=== PATIENT | male | born 1955 | race Caucasian/White ===

== ENCOUNTER 2017-03-21 13:47 | Emergency (ER) | payer MEDICARE, MEDICAID ==
[~2017-03-21] VITALS: Ht 180.3 cm; Wt 80.0 kg
[~2017-03-21 13:47] MED LIST: ALBU0.086 INH; ALRE0.2S3 BOTH EYES; ATOR10 PO; BUDE.5I INH; CARD4TAB2 PO; ECOT81TA2 PO; GUAI600 PO; IPRA0.02 INH; LEVE500 PO; LEXI700T PO; METH10TA PO; MONT10TA2 PO; SPIRCAP INH; TIMO0.2525 EACH EYE; TRUV200300; TYLCOD5S PO; VALT1TAB26 PO; XANA1TAB6 PO; [UNRECOGNIZED DRUG - OTHER] INH
[2017-03-21 13:53] VITALS: BP 108/58; PULSE 123; RESP 18; TEMP 98.1; O2SAT 87
[2017-03-21 14:04] VITALS: BP 108/58; PULSE 126; RESP 22; O2SAT 87
[2017-03-21] MEDS: RESP: ALBUTEROL 2.5 MG/IPRATROPIUM 0.5 MG NEB (SCH) INH (14:27)
--- NOTE | 2017-03-21 15:11 | RADRPT ---
EXAM DATE/TIME: 03/21/2017 14:46 [place] COMPARISON: CHEST PA & LAT, January 09, 2014, 19:41. INDICATIONS : Short of breath since yesterday. MEDICAL HISTORY : Glaucoma, hypercholesterolemia, Hx of Teberculosis in 1992, COPD, Hx of hep C. SURGICAL HISTORY : Tonsillectomy, Brain surgrey 1993 R/T infected abscess, C3-C4 fusion 2006, Sinus ENCOUNTER: Initial ACUITY: 1 day PAIN SCORE: 0/10 LOCATION: Bilateral chest FINDINGS: Portable AP view of the chest demonstrates a normal-sized cardiac silhouette. Right chest wall Infuse -a-Port is present with distal tip in the superior vena cava. There are interstitial opacities in the lower lung zones bilaterally, right greater than left with mild lucency in the upper lung zones. No pneumothorax or pleural effusion is seen. Bones and soft tissues demonstrate no acute finding. Cervic al spine hardware is present. CONCLUSION: Background lung changes are characteristic of emphysema. The interstitial opacities in the right lowe r lung zone appear slightly increased and could represent an abnormal airspace process. Suggest follo wup to confirm resolution. Ángel Stanford MD on March 21, 2017 at 15:08 Board Certified Radiologist. This report was verified electronically.
--- NOTE | 2017-03-21 15:21 | PD ---
HPI Chief Complaint: Respiratory Distress Time Seen by Provider: 15:16 Travel History International Travel<30 days: No Contact w/Intl Traveler<30days: No Traveled to known affect area: No History of Present Illness HPI 61-year-old male that presents to the ED for evaluation of shortness of breath. Patient has a chronic history of HIV and COPD. Patient is currently on hospice by [facility] and is currently being managed by them. Per sister who takes care of the patient his been more short of breath for the past 3 days. She feels that patient cannot longer stay at her house and she can no longer take care of himself she wants to bring the patient here to get evaluated to see whether it patient can be placed. Per sister she has been contacted with [facility] who unfortunately did not have any placement for him as of yet. Patient was brought here by ambulance for evaluation of this. He states that he feels short of breath for the past 3 days. He has chronic COPD and uses oxygen at home. Per ambulance report he sats well if his sitting, but whenever he ambulates gets very short of breath and his O2 sats that goes to 83,84. He denies any pain. Per patient he does feel short of breath. Has been having productive cough. Allergies to amoxicillin and Rocephin. PFSH Past Medical History Blood Disorders: No Anxiety: Yes Depression: No Cancer: No Cardiovascular Problems: No High Cholesterol: Yes COPD: Yes (ON NC @2L AT HOME) Diminished Hearing: No Endocrine: No Glaucoma: Yes Genitourinary: Yes Hepatitis: Yes ("hep c cleared") Immune Disorder: Yes ("HIV POSITIVE") Implanted Vascular Access Dvce: Yes Musculoskeletal: Yes Neurologic: No Psychiatric: Yes Reproductive: No Respiratory: Yes (COPD) Past Surgical History Abdominal Surgery: No AICD: No Arteriovenous Shunt: No Body Medical Devices: SCREWS/RODS IN NECK Cardiac Surgery: No Ear Surgery: No Endocrine Surgery: Yes (SINUS SURGERY 2003) Eye Surgery: No Genitourinary Surgery: No Gynecologic Surgery: No Insulin Pump: No Joint Replacement: No Neurologic Surgery: Yes (BRAIN SURGERY 1993 R/T INFECTED ABSCESS) Oral Surgery: Yes (sinus surgery) Pacemaker: No Thoracic Surgery: No Tonsillectomy: Yes Other Surgery: Yes ("1993,brain surgery,abscess removed") Social History Alcohol Use: No Tobacco Use: No Substance Use: No (history of iv use,last used cocaine in 1980) Allergies-Medications (Allergen,Severity, Reaction): Coded Allergies: Amoxicillin (Verified Allergy, Severe, UNKNOWN, 03/21/17) Penicillin (Verified Allergy, Severe, UNKNOWN, 03/21/17) Rocephin (Verified Allergy, Severe, SWELLING; 10/26/[address] Yaneth SANCHEZ PT TOLERATES ANCEF WELL, 03/21/17) 10/26/07: PER DR SANDY SANCHEZ, PT TOLERATES ANCEF W/O ADVERSE EFFECTS. Reported Meds & Prescriptions Reported Meds & Active Scripts Active Reported Clotrimazole 100 Mg Tablet 10 Mg PO 5 TIMES A DAY Lotemax Opth Drops (Loteprednol Etabonate) 0.5 % Soln 1 Drop EACH EYE QID Proventil Hfa 6.7 GM Inh (Albuterol Sulfate) 90 Mcg/Act Aer 2 Puff INH Q4-6H PRN Stiolto Respimat Inh (Tiotropium-Olodaterol Inh) 2.5-2.5 Mcg/Act Aero 2 Puff INH DAILY Lomotil (Diphenoxylate-Atropine) 2.5-0.025 Mg Tab 1 Tab PO Q6H PRN Klonopin (Clonazepam) 2 Mg Tab 2 Mg PO TID Ativan Inj (Lorazepam) 2 Mg/Ml Inj 6 Mg PO Q6HR PRN Cardura (Doxazosin Mesylate) 2 Mg Tab 2 Mg PO HS Daliresp (Roflumilast) 500 Mcg Tab 500 Mcg PO DAILY Cheratussin AC Liq (Guaifenesin-Codeine Liq) 100-10 Mg/5 Ml Syrp 5 Ml PO BID Do not exceed 6 doses/24 hrs. Lactulose Liq (Lactulose) 10 Gm/15 Ml Soln 15 Ml PO DAILY Prednisone 10 Mg Tab 10 Mg PO DAILY Ecotrin Low Strength (Aspirin) 81 Mg Tabdr 81 Mg PO DAILY Doxycycline Hyclate 50 Mg Cap 50 Mg PO DAILY Valtrex (Valacyclovir HCl) 1 Gm Tab 1,000 Mg PO DAILY Genvoya (Bhgciwumnxhw-Nmcpkhtyfs-Blzmfekufhuc-Tenofvir) [id number] Mg Tab 1 Tab PO DAILY Travatan Z Opth Drops (Travoprost) 0.004 % Soln 1 Drop DAILY Restasis Opth 0.05% (Cyclosporine Opth 0.05%) 0.05% Emul 1 Drop Androgel Pump Topical (Testosterone) 1.62 % Gel Unknown Dose TOPICAL DAILY Duoneb (Ipratropium-Albuterol Neb) 0.5-2.5 Mg/3 Ml Neb 1 Nebule INH Q6HR NEB Travatan Z Opth Drops (Travoprost) 0.004 % Soln 1 Drop EACH EYE HS Singulair (Montelukast Sodium) 10 Mg Tab 10 Mg PO DAILY Albuterol Neb (Albuterol Sulfate) 2.5 Mg/3 Ml Neb 2.5 Mg NEB BID PRN Oxycontin (Oxycodone HCl) 60 Mg Tab 60 Mg PO BID Clonazepam 2 Mg Tab 2 Mg PO TID Haloperidol 0.5 Mg Tab 0.5 Mg PO BID Morphine Sulfate 4 Mg/1 Ml Vial 20 Mg PO Q3HR PRN Morphine ER (Morphine Sulfate) 30 Mg Tab 30 Mg PO Q8H Review of Systems Except as stated in HPI: all other systems reviewed are Neg Physical Exam Narrative GENERAL: SKIN: Warm and dry. HEAD: Atraumatic. Normocephalic. EYES: Pupils equal and round. No scleral icterus. No injection or drainage. ENT: No nasal bleeding or discharge. Mucous membranes pink and moist. Tongue is midline. No uvula deviation. NECK: Trachea midline. No JVD. CARDIOVASCULAR: Regular rate and rhythm. No murmurs, S3, S4. RESPIRATORY: No accessory muscle use. Wheezing heard in all lung [place].. Breath sounds equal bilaterally. GASTROINTESTINAL: Abdomen soft, non-tender, nondistended. Hepatic and splenic margins not palpable. MUSCULOSKELETAL: Extremities without clubbing, cyanosis, or edema. No obvious deformities. Full range of motion of the upper and lower extremities bilaterally. 2+ pulses bilaterally. NEUROLOGICAL: Awake and alert. No obvious cranial nerve deficits. Motor grossly within normal limits. Five out of 5 muscle strength in the arms and legs. Normal speech. PSYCHIATRIC: Appropriate mood and affect; insight and judgment normal. Data Data Last Documented VS Vital Signs Date Time Temp Pulse Resp B/P Pulse Ox O2 Delivery O2 Flow Rate FiO2 03/21/17 19:03 118 25 98 Nasal Cannula 6 03/21/17 19:00 101/59 03/21/17 13:53 98.1 Orders Complete Blood Count With Diff (03/21/17 14:01) Basic Metabolic Panel (Bmp) (03/21/17 14:01) Blood Culture (03/21/17 14:01) Chest, Single Ap (03/21/17 14:01) Iv Access Insert/Monitor (03/21/17 14:01) Ecg Monitoring (03/21/17 14:01) Oximetry (03/21/17 14:01) Albuterol-Ipratropium Neb (Duoneb Neb) (03/21/17 14:15) Morphine Inj (Morphine Inj) (03/21/17 15:30) Ondansetron Inj (Zofran Inj) (03/21/17 15:30) Methylprednisolone So Succ Inj (Solumedr (03/21/17 16:45) Code Status (03/21/17 16:42) Ed Comfort Care (03/21/17 16:42) Diet Regular Basic (03/21/17 Dinner) Resp Oxygen Nasal Cannula (03/21/17 ) Hospice Consult (03/21/17 16:42) Morphine Inj (Morphine Inj) (03/21/17 16:45) Albuterol Neb (Albuterol Neb) (03/21/17 16:45) Ondansetron Inj (Zofran Inj) (03/21/17 16:45) Morphine Inj (Morphine Inj) (03/21/17 18:45) Labs Laboratory Tests Test 03/21/17 14:50 White Blood Count 11.1 TH/MM3 Red Blood Count 3.62 MIL/MM3 Hemoglobin 12.3 GM/DL Hematocrit 37.6 % Mean Corpuscular Volume 103.7 FL Mean Corpuscular Hemoglobin 34.0 PG Mean Corpuscular Hemoglobin 32.8 % Concent Red Cell Distribution Width 14.0 % Platelet Count 166 TH/MM3 Mean Platelet Volume 10.0 FL Neutrophils (%) (Auto) 76.4 % Lymphocytes (%) (Auto) 9.8 % Monocytes (%) (Auto) 11.7 % Eosinophils (%) (Auto) 1.4 % Basophils (%) (Auto) 0.7 % Neutrophils # (Auto) 8.5 TH/MM3 Lymphocytes # (Auto) 1.1 TH/MM3 Monocytes # (Auto) 1.3 TH/MM3 Eosinophils # (Auto) 0.2 TH/MM3 Basophils # (Auto) 0.1 TH/MM3 CBC Comment DIFF FINAL Differential Comment Sodium Level 141 MEQ/L Potassium Level 3.7 MEQ/L Chloride Level 98 MEQ/L Carbon Dioxide Level 37.7 MEQ/L Anion Gap 5 MEQ/L Blood Urea Nitrogen 13 MG/DL Creatinine 0.97 MG/DL Estimat Glomerular Filtration 79 ML/MIN Rate Random Glucose 94 MG/DL Calcium Level 9.4 MG/DL MDM Medical Decision Making Medical Screen Exam Complete: Yes Emergency Medical Condition: Yes Medical Record Reviewed: Yes Interpretation(s) CBC & BMP Diagram 03/21/17 14:50 Last Impressions Chest X-Ray 03/21/17 1401 Signed Impressions: Service Date/Time: Tuesday, March 21, 2017 14:46 - CONCLUSION: Background lung changes are characteristic of emphysema. The interstitial opacities in the right lower lung zone appear slightly increased and could represent an abnormal airspace process. Suggest followup to confirm resolution. Ángel Stanford MD Differential Diagnosis COPD versus HIV versus COPD exacerbation versus acute on chronic disease versus terminal illness Narrative Course 61-year-old male that presents to the ED for evaluation of shortness of breath. Patient was properly examined and was found to have signs and symptoms consistent appears to be terminal COPD. Patient is here more for placement than anything else. He does appear to be somewhat short of breath here. He will be given breathing treatments. X-rays and labs ordered. Case was discussed with case management who has placed a call to [facility] to better evaluate case and see whether patient can be placed. Labs and imaging here showed no sign of acute disease. Patient does have some interstitial findings chest x-ray. Case management has been involved with the patient is awaiting [facility] call back. Case management has been involved and apparently they were not able to successfully get [facility] cannot get him a placement. Case management has offered eval by our hospice center and family and patient agree to get evaluated. Hospice to come here tonight. patient was accepted to our hospice. Diagnosis Primary Impression: COPD (chronic obstructive pulmonary disease) Qualified Code: J42 - Chronic bronchitis, unspecified chronic bronchitis type Disposition: 51 HOSPICE/MED FACILITY Condition: Stable José Crenshaw Mar 21, 2017 15:21
[2017-03-21 15:22] VITALS: O2SAT 93
[2017-03-21] MEDS ORDERED: MORPHINE SULFATE 4 MG/ML INJ IV PUSH ONE (15:30)
[2017-03-21] MEDS ORDERED: ONDANSETRON HCL 4 MG/2 ML VIAL IV PUSH ONE ×2 (15:30→16:45)
[2017-03-21 15:31] LABS: AUTOMATED NEUTROPHIL # 8.5 TH/MM3 (1.8-7.7); BASOPHIL # 0.1 TH/MM3 (0-0.2); BASOPHIL % 0.7 % (0.0-2.0); EOSINOPHIL # 0.2 TH/MM3 (0-0.4); EOSINOPHIL % 1.4 % (0.0-4.0); HEMATOCRIT 37.6 % (39.0-51.0); HEMO FLAGS DIFF FINAL; LYMPH % 9.8 % (9.0-44.0); LYMPHOCYTE # 1.1 TH/MM3 (1.0-4.8); MEAN CELL VOLUME 103.7 FL (80.0-100.0); MEAN CORPUSCULAR HGB CONC 32.8 % (32.0-36.0); MONO % 11.7 % (0.0-8.0); NEUT % 76.4 % (16.0-70.0); PLATELET COUNT 166 TH/MM3 (150-450); RED BLOOD COUNT 3.62 MIL/MM3 (4.50-5.90); WHITE BLOOD COUNT 11.1 TH/MM3 (4.0-11.0)
[2017-03-21 15:46] LABS: BICARBONATE 37.7 MEQ/L (21.0-32.0); POTASSIUM 3.7 MEQ/L (3.5-5.1)
[2017-03-21] MEDS ORDERED: RESP: ALBUTEROL 2.5 MG/3 ML NEB (PRN) NEB (16:45)
[2017-03-21] MEDS ORDERED: methylPREDNISolone SOD SUCC 125 MG/2 ML VIAL IV PUSH ONE (16:45)
[2017-03-21] MEDS ORDERED: MORPHINE SULFATE 4 MG/ML INJ IV PRN ×2 (16:45→18:45)
[2017-03-21] MEDS ORDERED: MONT10TA2 PO (17:39)
[2017-03-21] MEDS ORDERED: TRAV0.00 (17:39)
[2017-03-21] MEDS ORDERED: LACT10SO PO (17:39)
[2017-03-21] MEDS ORDERED: CARD2TAB PO (17:39)
[2017-03-21] MEDS ORDERED: CHERSYP2 PO (17:39)
[2017-03-21] MEDS ORDERED: ALBU6.7H INH (17:39)
[2017-03-21] MEDS ORDERED: ASPI-147 PO (17:39)
[2017-03-21] MEDS ORDERED: PRED10 PO (17:39)
[2017-03-21] MEDS ORDERED: TRAV0.00 EACH EYE (17:39)
[2017-03-21] MEDS ORDERED: HALO0.5T PO (17:39)
[2017-03-21] MEDS ORDERED: OXYC60TA8 PO (17:39)
[2017-03-21] MEDS ORDERED: KLON2TAB PO (17:39)
[2017-03-21] MEDS ORDERED: IPRASOL INH (17:39)
[2017-03-21] MEDS ORDERED: MORP4VIA PO (17:39)
[2017-03-21] MEDS ORDERED: LOTE0.5S EACH EYE (17:39)
[2017-03-21] MEDS ORDERED: DOXY50 PO (17:39)
[2017-03-21] MEDS ORDERED: LOMO2.5T PO (17:39)
[2017-03-21] MEDS ORDERED: REST0.05 (17:39)
[2017-03-21] MEDS ORDERED: TIOT1AER INH (17:39)
[2017-03-21] MEDS ORDERED: ROFL1TAB2 PO (17:39)
[2017-03-21] MEDS ORDERED: ALBU0.08 NEB (17:39)
[2017-03-21] MEDS ORDERED: ATIV2INJ2 PO (17:39)
[2017-03-21] MEDS ORDERED: VALT1TAB PO (17:39)
[2017-03-21] MEDS ORDERED: ANDR1.62 TOPICAL (17:39)
[2017-03-21] MEDS ORDERED: CLON2TAB PO (17:39)
[2017-03-21] MEDS ORDERED: ELVI1TAB3 PO (17:39)
[2017-03-21] MEDS ORDERED: [UNRECOGNIZED DRUG - CODE] PO (17:39)
[2017-03-21] MEDS ORDERED: MORP1TAB25 PO (17:39)
--- NOTE | 2017-03-21 17:42 | PD ---
Data Data Last Documented VS Vital Signs Date Time Temp Pulse Resp B/P Pulse Ox O2 Delivery O2 Flow Rate FiO2 03/21/17 15:22 93 Partial Rebreather 15 03/21/17 14:07 125 22 03/21/17 14:04 108/58 03/21/17 13:53 98.1 Orders Complete Blood Count With Diff (03/21/17 14:01) Basic Metabolic Panel (Bmp) (03/21/17 14:01) Blood Culture (03/21/17 14:01) Chest, Single Ap (03/21/17 14:01) Iv Access Insert/Monitor (03/21/17 14:01) Ecg Monitoring (03/21/17 14:01) Oximetry (03/21/17 14:01) Albuterol-Ipratropium Neb (Duoneb Neb) (03/21/17 14:15) Morphine Inj (Morphine Inj) (03/21/17 15:30) Ondansetron Inj (Zofran Inj) (03/21/17 15:30) Methylprednisolone So Succ Inj (Solumedr (03/21/17 16:45) Code Status (03/21/17 16:42) Ed Comfort Care (03/21/17 16:42) Diet Regular Basic (03/21/17 Dinner) Resp Oxygen Nasal Cannula (03/21/17 ) Hospice Consult (03/21/17 16:42) Morphine Inj (Morphine Inj) (03/21/17 16:45) Albuterol Neb (Albuterol Neb) (03/21/17 16:45) Ondansetron Inj (Zofran Inj) (03/21/17 16:45) Labs Laboratory Tests Test 03/21/17 14:50 White Blood Count 11.1 TH/MM3 Red Blood Count 3.62 MIL/MM3 Hemoglobin 12.3 GM/DL Hematocrit 37.6 % Mean Corpuscular Volume 103.7 FL Mean Corpuscular Hemoglobin 34.0 PG Mean Corpuscular Hemoglobin 32.8 % Concent Red Cell Distribution Width 14.0 % Platelet Count 166 TH/MM3 Mean Platelet Volume 10.0 FL Neutrophils (%) (Auto) 76.4 % Lymphocytes (%) (Auto) 9.8 % Monocytes (%) (Auto) 11.7 % Eosinophils (%) (Auto) 1.4 % Basophils (%) (Auto) 0.7 % Neutrophils # (Auto) 8.5 TH/MM3 Lymphocytes # (Auto) 1.1 TH/MM3 Monocytes # (Auto) 1.3 TH/MM3 Eosinophils # (Auto) 0.2 TH/MM3 Basophils # (Auto) 0.1 TH/MM3 CBC Comment DIFF FINAL Differential Comment Sodium Level 141 MEQ/L Potassium Level 3.7 MEQ/L Chloride Level 98 MEQ/L Carbon Dioxide Level 37.7 MEQ/L Anion Gap 5 MEQ/L Blood Urea Nitrogen 13 MG/DL Creatinine 0.97 MG/DL Estimat Glomerular Filtration 79 ML/MIN Rate Random Glucose 94 MG/DL Calcium Level 9.4 MG/DL MDM Supervised Visit with [facility]: Yes Narrative Course The history, exam, and medical decision-making in the associated midlevel provider note were completed with my assistance. I reviewed and agree with the findings presented. I attest that I had a [id number] encounter with the patient on the same day, and personally performed and documented my assessment and findings in the medical record. *My assessment and Findings: This is a 61-year-old male who has a history of end -stage COPD who presents to the emergency department with increasing dyspnea. His brings him in because he is on hospice and he is doing worse. She says he is very uncomfortable, painful and having trouble breathing and she is having trouble taking care of him at home. She thinks he needs to be placed elsewhere. We spoke to the [facility] who offered the patient 24-hour care at home but the doesn't want to take him home. She elected to switch to [facility] in hopes that he will be transferred to the [facility]. He was placed on a comfort care protocol in agreement with the 's wishes and hospice will come see the patient Kirti Miller MD Mar 21, 2017 17:42
[2017-03-21 18:01] VITALS: BP 112/62; PULSE 124; RESP 18; O2SAT 86
[2017-03-21 19:00] VITALS: BP 101/59; PULSE 118; RESP 25; O2SAT 90
== END 2017-03-21 21:08 | disposition hospice, inpatient (51) ==
LOC: NEPE 13:47
DX: J44.9 Chronic obstructive pulmonary disease, unspecified (principal); Z99.81 Dependence on supplemental oxygen
CPT/HCPCS: 71010; 80048; 85025; 87040; 94664; 96374; 96375; 96376; 99285; J2270; J2405; J2930